=== PATIENT | female | born 1980 | race Two or more races ===

== ENCOUNTER 2017-12-11 15:43 | Emergency (ER) | payer OTHER ==
[2017-12-11 17:23] LABS: BILIRUBIN,URINE NEGATIVE (NEG); CLARITY,URINE CLEAR; COLOR,URINE YELLOW; GLUCOSE,URINE NEGATIVE (NEG); NITRITE,URINE NEGATIVE (NEG); PROTEIN,URINE NEGATIVE (NEG-TRACE); UROBILINOGEN,URINE 0.2 mg/dL (0.2 mg/dL)
[2017-12-11] MEDS: IBUPROFEN 800 MG TABLET. PO ×2 (17:30)
[2017-12-11 17:33] LABS: BACTERIA,URINE FEW /HPF (0-FEW); RBC,URINE 0 /HPF (0-2); SQUAMOUS EPITHELIAL CELL,UR OCC /LPF; WBC,URINE OCC /HPF (0-4)
[2017-12-11 17:49] LABS: INFLUENZA A PATIENT NEGATIVE (NEGATIVE); INFLUENZA B PATIENT NEGATIVE (NEGATIVE); OBC FLU VALID
== END 2017-12-11 18:24 | disposition home or self-care (01) ==
LOC: ER 18:24
DX: B34.9 Viral infection, unspecified (principal)
CPT/HCPCS: 81001; 87804; 87804-59; 99284

== ENCOUNTER 2018-09-25 00:30 | Emergency (ER) | payer OTHER ==
[~2018-09-25] VITALS: Ht 157.5 cm; Wt 64.9 kg
[~2018-09-25 00:30] MED LIST: OSEL75CA PO
[2018-09-25 00:48] VITALS: BP 128/79
[2018-09-25] MEDS ORDERED: DIPH25CA58 PO (01:07)
[2018-09-25] MEDS ORDERED: HYDR453.4 TP (01:07)
[2018-09-25] MEDS ORDERED: diphenhydrAMINE HCL 25 MG CAPSULE PO ONE (01:15)
--- NOTE | 2018-09-25 01:26 | PHYS DOC ---
Past Medical History Past Medical History: No Pertinent History Past Surgical History: No Surgical History Alcohol Use: None Drug Use: None Adult General Chief Complaint Chief Complaint: SKIN PROBLEM HPI HPI Patient is a 38 year olD female with rash times one month worse at night it got worse tonight she has not tried anything for relief it is itching no shortness of breath no new medications no new foods no medical history that she knows of Review of Systems Review of Systems Constitutional: Denies fever or chills [] Eyes: Denies change in visual acuity, redness, or eye pain [] HENT: Denies nasal congestion or sore throat [] Respiratory: Denies cough or shortness of breath [] All other systems were reviewed and found to be within normal limits, except as documented in this note. Current Medications Current Medications Current Medications Medications (Trade) Dose Ordered Sig/Whitney Start Time Stop Time Status Last Admin Dose Admin Diphenhydramine HCl (Benadryl) 50 mg 1X ONCE 09/25/18 01:15 09/25/18 01:16 DC Allergies Allergies Allergies Coded Allergies Type Severity Reaction Last Updated Verified No Known Drug Allergies 12/11/17 No Physical Exam Physical Exam Constitutional: Well developed, well nourished, no acute distress, non-toxic appearance. [] HENT: Normocephalic, atraumatic, bilateral external ears normal, oropharynx moist, no oral exudates, nose normal. [] Eyes: PERRLA, EOMI, conjunctiva normal, no discharge. [] Neck: Normal range of motion, no tenderness, supple, no stridor. [] Cardiovascular:Heart rate regular rhythm, no murmur [] Lungs & Thorax: Bilateral breath sounds clear to auscultation [] Abdomen: Bowel sounds normal, soft, no tenderness, no masses, no pulsatile masses. [] Skin: Urticarial rash on the trunk and extremities and neck Back: No tenderness, no CVA tenderness. [] Extremities: No tenderness, no cyanosis, no clubbing, ROM intact, no edema. [] Neurologic: Alert and oriented X 3, normal motor function, normal sensory function, no focal deficits noted. [] Psychologic: Affect normal, judgement normal, mood normal. [] Current Patient Data Vital Signs Vital Signs Date Time Temp Pulse Resp B/P (MAP) Pulse Ox O2 Delivery O2 Flow Rate FiO2 09/25/18 00:48 97.6 64 18 128/79 (95) 99 Room Air 97.6 EKG EKG [] Radiology/Procedures Radiology/Procedures [] Course & Med Decision Making Course & Med Decision Making Pertinent Labs and Imaging studies reviewed. (See chart for details) []Urticaria NOS trial of Benadryl and hydrocortisone cream was given. No obvious trigger could be identified by history. Dragon Disclaimer Dragon Disclaimer This electronic medical record was generated, in whole or in part, using a voice recognition dictation system. Departure Departure Impression: Primary Impression: Urticaria Disposition: HOME, SELF-CARE Condition: STABLE Patient Instructions: Hives, Fvul-wr-Agha Scripts Diphenhydramine Hcl (BENADRYL) 25 Mg Capsule 25 MG PO BID PRN for ITCHING, #30 CAP Prov: MIRNA CHONG MD 09/25/18 Hydrocortisone (HYDROCORTISONE) 453.6 Gm Oint...g. 1 APPLIC TP BID, #60 GM 1 Refill Prov: MIRNA CHONG MD 09/25/18 MIRNA CHONG MD Sep 25, 2018 01:25
== END 2018-09-25 01:50 | disposition home or self-care (01) ==
LOC: ER 00:30
DX: L50.9 Urticaria, unspecified (principal)
CPT/HCPCS: 99283; Q0163

== ENCOUNTER 2019-09-17 12:52 | Emergency (ER) | payer OTHER ==
[~2019-09-17] VITALS: Ht 157.5 cm; Wt 73.5 kg
[~2019-09-17 12:52] MED LIST changes: +DIPH25CA58 PO; +HYDR453.4 TP
[2019-09-17] MEDS ORDERED: ONDANSETRON PF 4 MG/2 ML VIAL. IV ONE (13:30)
[2019-09-17] MEDS ORDERED: fentaNYL PF VIAL 100 MCG/2 ML VIAL IVP ONE (13:30)
[2019-09-17] MEDS ORDERED: IV NORMAL SALINE 500ML BAG 500 ML IV ONE (13:30)
[2019-09-17 14:01] LABS: BASO % 1 % (0-3); EOS # 0.1 x10^3/uL (0.0-0.7); EOS % 2 % (0-3); HEMATOCRIT 38.8 % (36.0-47.0); HEMOGLOBIN 13.6 g/dL (12.0-15.5); LYMPH # 1.7 x10^3/uL (1.0-4.8); LYMPH % 36 % (24-48); MEAN CORPUSCULAR HEMOGLOBIN 30 pg (25-35); MEAN CORPUSCULAR HGB CONC 35 g/dL (31-37); MEAN CORPUSCULAR VOLUME 87 fL (79-100); MONO # 0.2 x10^3/uL (0.0-1.1); MONO % 5 % (0-9); NEUT # 2.6 x10^3/uL (1.8-7.7); NEUT % 56 % (31-73); PLATELET COUNT 164 x10^3/uL (140-400); RED BLOOD COUNT 4.47 x10^6/uL (3.50-5.40); RED CELL DISTRIBUTION WIDTH 12.5 % (11.5-14.5); WHITE BLOOD COUNT 4.6 x10^3/uL (4.0-11.0)
[2019-09-17 14:03] LABS: CREATININE 0.6 mg/dL (0.6-1.0); GFR 110.2; POTASSIUM 3.3 mmol/L (3.5-5.1)
[2019-09-17 14:10] LABS: ALBUMIN 4.1 g/dL (3.4-5.0); TOTAL PROTEIN 8.3 g/dL (6.4-8.2)
--- NOTE | 2019-09-17 14:47 | PHYS DOC ---
Past Medical History Past Medical History: No Pertinent History, GERD, Hypertension Past Surgical History: No Surgical History Alcohol Use: None Drug Use: None Adult General Chief Complaint Chief Complaint: DIZZY/LIGHT HEADED HPI HPI Patient is a 39-year-old female who presents with complaint of headache for the last day with some nausea and photophobia. Patient has had no vomiting. Patient also indicates that she feels a little bit dizzy and weak when she stands up. She denies any visual changes. She denies any fever or neck pain. Patient rates headache as moderate. She does indicate that she has photophobia.[] Review of Systems Review of Systems Constitutional: Denies fever or chills [] Eyes: Denies change in visual acuity, redness, or eye pain [] Respiratory: Denies cough or shortness of breath [] Cardiovascular: No additional information not addressed in HPI [] GI: Denies abdominal pain. Admits to nausea but no vomiting or diarrhea [] Integument: Denies rash or skin lesions [] Neurologic: Complains of headache without focal weakness or sensory changes [] All other systems were reviewed and found to be within normal limits, except as documented in this note. Current Medications Current Medications Current Medications Medications (Trade) Dose Ordered Sig/Whitney Start Time Stop Time Status Last Admin Dose Admin Fentanyl Citrate (Fentanyl 2ml Vial) 50 mcg 1X ONCE 09/17/19 13:30 09/17/19 13:31 DC 09/17/19 13:56 50 MCG Ondansetron HCl (Zofran) 4 mg 1X ONCE 09/17/19 13:30 09/17/19 13:31 DC 09/17/19 13:55 4 MG Sodium Chloride 500 ml @ 500 mls/hr 1X ONCE 09/17/19 13:30 09/17/19 14:29 DC 09/17/19 13:30 500 MLS/HR Allergies Allergies Allergies Coded Allergies Type Severity Reaction Last Updated Verified No Known Drug Allergies 12/11/17 No Physical Exam Physical Exam Constitutional: Well developed, well nourished, no acute distress, non-toxic appearance. [] HENT: Normocephalic, atraumatic, bilateral external ears normal, oropharynx moist, no oral exudates, nose normal. [] Eyes: PERRLA, EOMI, conjunctiva normal, no discharge. [] Neck: Normal range of motion, no tenderness, supple, no stridor. [] Cardiovascular:Heart rate regular rhythm, no murmur [] Lungs & Thorax: Bilateral breath sounds clear to auscultation [] Abdomen: Bowel sounds normal, soft, no tenderness, no masses, no pulsatile masses. [] Skin: Warm, dry, no erythema, no rash. [] Back: No tenderness, no CVA tenderness. [] Extremities: No tenderness, no cyanosis, no clubbing, ROM intact, no edema. [] Neurologic: Alert and oriented X 3, normal motor function, normal sensory function, no focal deficits noted. [] Psychologic: Affect normal, judgement normal, mood normal. [] Current Patient Data Vital Signs Vital Signs Date Time Temp Pulse Resp B/P (MAP) Pulse Ox O2 Delivery O2 Flow Rate FiO2 09/17/19 14:48 64 17 96 09/17/19 13:56 Room Air 09/17/19 13:10 98.7 131/85 (100) 98.7 Lab Values Laboratory Tests Test 09/17/19 13:45 09/17/19 14:28 09/17/19 14:35 White Blood Count 4.6 x10^3/uL (4.0-11.0) Red Blood Count 4.47 x10^6/uL (3.50-5.40) Hemoglobin 13.6 g/dL (12.0-15.5) Hematocrit 38.8 % (36.0-47.0) Mean Corpuscular Volume 87 fL (79-100) Mean Corpuscular Hemoglobin 30 pg (25-35) Mean Corpuscular Hemoglobin Concent 35 g/dL (31-37) Red Cell Distribution Width 12.5 % (11.5-14.5) Platelet Count 164 x10^3/uL (140-400) Neutrophils (%) (Auto) 56 % (31-73) Lymphocytes (%) (Auto) 36 % (24-48) Monocytes (%) (Auto) 5 % (0-9) Eosinophils (%) (Auto) 2 % (0-3) Basophils (%) (Auto) 1 % (0-3) Neutrophils # (Auto) 2.6 x10^3/uL (1.8-7.7) Lymphocytes # (Auto) 1.7 x10^3/uL (1.0-4.8) Monocytes # (Auto) 0.2 x10^3/uL (0.0-1.1) Eosinophils # (Auto) 0.1 x10^3/uL (0.0-0.7) Basophils # (Auto) 0.0 x10^3/uL (0.0-0.2) Sodium Level 140 mmol/L (136-145) Potassium Level 3.3 mmol/L (3.5-5.1) L Chloride Level 102 mmol/L (98-107) Carbon Dioxide Level 27 mmol/L (21-32) Anion Gap 11 (6-14) Blood Urea Nitrogen 8 mg/dL (7-20) Creatinine 0.6 mg/dL (0.6-1.0) Estimated GFR (Cockcroft-Gault) 110.2 BUN/Creatinine Ratio 13 (6-20) Glucose Level 94 mg/dL (70-99) Calcium Level 9.0 mg/dL (8.5-10.1) Magnesium Level 2.0 mg/dL (1.8-2.4) Total Bilirubin 1.0 mg/dL (0.2-1.0) Aspartate Amino Transferase (AST) 25 U/L (15-37) Alanine Aminotransferase (ALT) 38 U/L (14-59) Alkaline Phosphatase 77 U/L (46-116) Total Protein 8.3 g/dL (6.4-8.2) H Albumin 4.1 g/dL (3.4-5.0) Albumin/Globulin Ratio 1.0 (1.0-1.7) Urine Collection Type Unknown Urine Color Yellow Urine Clarity Clear Urine pH 6.0 Urine Specific [place] <=1.005 Urine Protein Negative mg/dL (NEG-TRACE) Urine Glucose (UA) Negative mg/dL (NEG) Urine Ketones (Stick) Negative mg/dL (NEG) Urine Blood Negative (NEG) Urine Nitrite Negative (NEG) Urine Bilirubin Negative (NEG) Urine Urobilinogen Dipstick 0.2 mg/dL (0.2 mg/dL) Urine Leukocyte Esterase Negative (NEG) Urine RBC Occ /HPF (0-2) Urine WBC 1-4 /HPF (0-4) Urine Squamous Epithelial Cells Few /LPF Urine Bacteria Few /HPF (0-FEW) POC Urine HCG, Qualitative Hcg negative (Negative) Laboratory Tests 09/17/19 13:45 Laboratory Tests 09/17/19 13:45 EKG EKG [] Interpretation Time: EKG demonstrates normal sinus rhythm with rate of 65. Radiology/Procedures Radiology/Procedures [] Impressions: CT scan of the head without contrast 09/17/2019 Clinical History: Severe headaches. Technique: Unenhanced, contiguous, 5 mm axial sections were obtained through the head. One or more of the following individualized dose reduction techniques were utilized for this study: 1. Automated exposure control. 2. Adjustment of the mA and/or kV according to patient size. 3. Use of iterative reconstruction technique. Findings: The ventricles and sulci are within normal limits in size and configuration. No focal area of abnormal attenuation is seen involving the brain parenchyma. No extra-axial fluid collection is seen. No skull fracture is seen. Impression: Negative study. Electronically signed by: Pawan Harrison MD (09/17/2019 3:05 PM) [facility] Course & Med Decision Making Course & Med Decision Making Pertinent Labs and Imaging studies reviewed. (See chart for details) [] Dragon Disclaimer Dragon Disclaimer This electronic medical record was generated, in whole or in part, using a voice recognition dictation system. Departure Departure Impression: Primary Impression: Migraine Disposition: 01 HOME, SELF-CARE Condition: STABLE Referrals: UNKNOWN PCP NAME (PCP) Patient Instructions: Migraine Headache Scripts Butalbital/Aspirin/Caffeine (FIORINAL 50-325-40 MG CAPSULE) 1 Each Capsule 1 EACH PO Q6HRS PRN for HEADACHE, #20 CAP Prov: JUANA GERONIMO Jr. DO 09/17/19 Problem Qualifiers Primary Impression: Migraine Migraine type: unspecified Status migrainosus presence: without status migrainosus Intractability: not intractable Qualified Codes: G43.909 - Migraine, unspecified, not intractable, without status migrainosus JUANA GERONIMO Jr. DO Sep 17, 2019 14:46
[2019-09-17 14:57] LABS: BILIRUBIN,URINE NEGATIVE (NEG); CLARITY,URINE CLEAR; COLOR,URINE YELLOW; NITRITE,URINE NEGATIVE (NEG); PROTEIN,URINE NEGATIVE (NEG-TRACE); UROBILINOGEN,URINE 0.2 mg/dL (0.2 mg/dL)
--- NOTE | 2019-09-17 15:08 | RAD ---
CT scan of the head without contrast 09/17/2019 Clinical History: Severe headaches. Technique: Unenhanced, contiguous, 5 mm axial sections were obtained through the head. One or more of the following individualized dose reduction techniques were utilized for this study: 1. Automated exposure control. 2. Adjustment of the mA and/or kV according to patient size. 3. Use of iterative reconstruction technique. Findings: The ventricles and sulci are within normal limits in size and configuration. No focal area of abnormal attenuation is seen involving the brain parenchyma. No extra-axial fluid collection is seen. No skull fracture is seen. Impression: Negative study. Electronically signed by: Pawan Harrison MD (09/17/2019 3:05 PM) [facility]
[2019-09-17 15:17] LABS: BACTERIA,URINE FEW /HPF (0-FEW); RBC,URINE OCC /HPF (0-2); SQUAMOUS EPITHELIAL CELL,UR FEW /LPF
[2019-09-17 15:20] VITALS: BP 124/72
[2019-09-17] MEDS ORDERED: BUTA1CAP31 PO (15:45)
--- NOTE | 2019-09-18 06:35 | EKG ---
[facility] [address] [place] [address] Test Date: 2019-09-17 Test Time: 13:39:04 Pat Name: LUDWIG SURESH Department: Room: Gender: F Medical Recruiter: : 1980 Requested By: JUANA GERONIMO Order Number: [id number] Reading MD: Awais Zepeda Measurements Intervals [place] Rate: 65 P: 37 AR: 164 QRS: 43 QRSD: 76 T: -4 QT: 498 QTc: 519 Interpretive Statements SINUS RHYTHM T ABNORMALITY IN ANTERIOR LEADS INFERIOR LEADS PROLONGED QT ABNORMAL ECG RI6.01 No previous ECG available for comparison Electronically Signed On 09-19-2019 14:31:28 [employer] by Awais Zepeda
== END 2019-09-17 15:59 | disposition home or self-care (01) ==
LOC: ER 12:52
DX: G43.909 Migraine, unspecified, not intractable, without status migrainosus (principal); R42 Dizziness and giddiness; K21.9 Gastro-esophageal reflux disease without esophagitis; I10 Essential (primary) hypertension
CPT/HCPCS: 36415; 70450; 80053; 81001; 81025; 83735; 85025; 93005; 96361; 96374; 96375; 99285; J2405; J3010; J7040

== ENCOUNTER 2020-02-09 11:18 | Emergency (ER) | payer OTHER ==
[~2020-02-09] VITALS: Ht 157.5 cm; Wt 68.0 kg
[~2020-02-09 11:18] MED LIST changes: +BUTA1CAP31 PO
[2020-02-09 12:16] VITALS: BP 143/50
[2020-02-09 13:00] LABS: BILIRUBIN,URINE NEGATIVE (NEG); CLARITY,URINE CLEAR; NITRITE,URINE NEGATIVE (NEG); PROTEIN,URINE NEGATIVE (NEG-TRACE); UROBILINOGEN,URINE 0.2 mg/dL (0.2 mg/dL)
--- NOTE | 2020-02-09 13:00 | RAD ---
Examination: CHEST AP ONLY History: Cough, tightness of the chest Comparison: None. Findings: AP portable upright frontal view of the chest was obtained. The cardiomediastinal silhouette is normal. Lungs are clear. There is no pneumothorax. No pleural effusion is appreciated. No acute bone abnormality. IMPRESSION: No acute cardiopulmonary process. Electronically signed by: Iraj Bartlett MD (02/09/2020 12:57 PM) [id number]
[2020-02-09 13:04] LABS: COLOR,URINE STRAW
[2020-02-09 13:05] LABS: SQUAMOUS EPITHELIAL CELL,UR MOD /LPF
[2020-02-09 13:07] LABS: BACTERIA,URINE FEW /HPF (0-FEW); RBC,URINE 0 /HPF (0-2); WBC,URINE 0 /HPF (0-4)
[2020-02-09] MEDS ORDERED: NAPR-683 PO (13:17)
--- NOTE | 2020-02-09 13:19 | PHYS DOC ---
Past Medical History Past Medical History: GERD, Hypertension Past Surgical History: No Surgical History Smoking Status: Never Smoker Alcohol Use: None Drug Use: None General Adult EDM: Chief Complaint: GENERALIZED BODY ACHES HPI: HPI: Patient is a 39 year old female with history of hypertension and GERD who presents with complaining of hurting in chest and abdomen, cough, chills. Patient complaining of hurting all over since yesterday associated with chills, sore throat, dry cough . Patient denies headache, shortness of breath, fever, vomiting, diarrhea, urinary symptoms, sick contact with COVID-19. Patient was afebrile at arrival to ER. Review of Systems: Review of Systems: Constitutional: Denies fever, reports chills. [] Eyes: Denies change in visual acuity. [] HENT: Denies nasal congestion, report sore throat. [] Respiratory: Denies shortness of breath, reports cough. [] Cardiovascular: Reports chest pain, denies edema. [] GI: Denies abdominal pain, nausea, vomiting, bloody stools or diarrhea. [] : Denies dysuria. [] Musculoskeletal: Denies back pain or joint pain. [] Integument: Denies rash. [] Neurologic: Denies headache, focal weakness or sensory changes. [] Endocrine: Denies polyuria or polydipsia. [] Lymphatic: Denies swollen glands. [] Psychiatric: Denies depression or anxiety. [] Heart Score: Risk Factors: Risk Factors: DM, Current or recent (<one month) smoker, HTN, HLP, family history of CAD, obesity. Risk Scores: Score 0 - 3: 2.5% MACE over next 6 weeks - Discharge Home Score 4 - 6: 20.3% MACE over next 6 weeks - Admit for Clinical Observation Score 7 - 10: 72.7% MACE over next 6 weeks - Early Invasive Strategies Allergies: Allergies: Allergies Coded Allergies Type Severity Reaction Last Updated Verified No Known Drug Allergies 12/11/17 No Physical Exam: PE: Constitutional: Well developed, well nourished, mild distress, non-toxic appearance. [] HENT: Normocephalic, atraumatic, bilateral external ears normal, oropharynx moist, no oral exudates, nose normal. [] Eyes: PERRLA, EOMI, conjunctiva normal, no discharge. [] Neck: Normal range of motion, no tenderness, supple, no stridor. [] Cardiovascular:Heart rate regular rhythm, no murmur [] Lungs & Thorax: Bilateral breath sounds clear to auscultation [] Abdomen: Bowel sounds normal, soft, no tenderness, no masses, no pulsatile masses. [] Skin: Warm, dry, no erythema, no rash. [] Back: No tenderness, no CVA tenderness. [] Extremities: No tenderness, no cyanosis, no clubbing, ROM intact, no edema. [] Neurologic: Alert and oriented X 3, normal motor function, normal sensory function, no focal deficits noted. [] Psychologic: Affect normal, judgement normal, mood normal. [] Current Patient Data: Labs: Laboratory Tests Test 02/09/20 12:55 POC Urine HCG, Qualitative Hcg negative (Negative) Vital Signs: Vital Signs Date Time Temp Pulse Resp B/P (MAP) Pulse Ox O2 Delivery O2 Flow Rate FiO2 02/09/20 12:16 98.1 59 18 143/50 (81) 98 Room Air 98.1 EKG: EKG: [] Radiology/Procedures: Radiology/Procedures: [facility] [address] [place] [address] IMAGING REPORT Signed PATIENT: LUDWIG SURESH ACCOUNT: [id number] : 1980 LOCATION: ER AGE: 39 SEX: F EXAM STATUS: REG ER ORD. PHYSICIAN: STEVEN RODRIGUEZ MD REASON: Cough, tightness of chest PROCEDURE: CHEST AP ONLY Examination: CHEST AP ONLY History: Cough, tightness of the chest Comparison: None. Findings: AP portable upright frontal view of the chest was obtained. The cardiomediastinal silhouette is normal. Lungs are clear. There is no pneumothorax. No pleural effusion is appreciated. No acute bone abnormality. IMPRESSION: No acute cardiopulmonary process. Electronically signed by: Iraj Trejo MD (02/09/2020 12:57 PM) [id number] DICTATED and SIGNED BY: IRAJ TREJO MD DATE: 02/09/20 1257 Course & Med Decision Making: Course & Med Decision Making Pertinent Labs and Imaging studies reviewed. (See chart for details) Evaluation of patient inertial 39-year-old female patient complaining of viral illness without fever and shortness of breath. COVID-19 test was obtained and result is pending. Patient had unremarkable chest x-ray and UA. Plan discharge patient home with diagnosis of viral illness. Patient was advised to follow-up with home quarantine until to get the test result. I've spoken with the patient and/or caregivers. I've explained the patient's condition, diagnosis and treatment plan based on information available to me at this time. I've answered the patient's and/or caregivers questions and addressed any concerns. The patient and/or caregivers have a good understanding the patient's diagnosis, condition and treatment plan as can be expected at this point. Vital signs have been stabilized. The patient's condition is stable for discharge from the emergency department. The patient will pursue further outpatient evaluation with her primary care provider or other designated consulting physician as outlined in the discharge instructions. Patient and/or caregivers are agreeable to this plan of care and follow-up instructions have been explained in detail. The patient and/or caregivers have received these instructions in written format and expressed understanding of these discharge instructions. The patient and her caregivers are aware that if any significant change in condition or worsening of symptoms should prompt him to immediately return to this of the closest emergency department. If an emergent department is not readily available I would enco urage him to call 911. Mono Disclaimer: Mono Disclaimer: This electronic medical record was generated, in whole or in part, using a voice recognition dictation system. Departure Departure Impression: Primary Impression: Viral syndrome Additional Impression: Suspected COVID-19 virus infection Disposition: HOME, SELF-CARE (At 1315) Condition: STABLE Referrals: UNKNOWN PCP NAME (PCP) Patient Instructions: Viral Infections Additional Instructions: Drink plenty of liquids Follow-up with your primary care physician in 3-5 days Return to ER if not getting better Follow-up with test results for COVID-19 in 2 or 3 days Follow-up with quarantine at home until get the test results for COVID-19 Thank you for visiting [facility]. We appreciate you trusting us with your care. If any additional problems come up don't hesitate to return to visit us. Please follow up with your primary care provider so they can plan additional care if needed and know about the problem that you had. If symptoms worsen come back to the Emergency Department. Any concerning symptoms that start such as chest pain, shortness of air, weakness or numbness on one side of the body, running high fevers or any other concerning symptoms return to the ER. Scripts Naproxen (NAPROSYN) 500 Mg Tablet 1 TAB PO BID for pain, #20 TAB Prov: STEVEN RODRIGUEZ MD 02/09/20 COVID-19 Assessment: COVID-19 Patient Risks: Age 65 or older: No Sign of co-morbidity: Yes Exp to person + for COVID: No Exp to PUI: No Travel from affected area: No Lower respiratory symptoms: No Fever: No Other: No PPE Use: Full PPE with N95 mask or PAPR: Yes (Wearing N95 mask, no gawn was used) STEVEN RODRIGUEZ MD Feb 09, 2020 13:19
[2020-02-12] MEDS ORDERED: OXYC1TAB15 PO ×2 (11:15→11:22)
== END 2020-02-09 13:50 | disposition home or self-care (01) ==
LOC: ER 11:18
DX: B34.9 Viral infection, unspecified (principal); Z03.818 Encounter for observation for suspected exposure to other biological agents ruled out; K21.9 Gastro-esophageal reflux disease without esophagitis; I10 Essential (primary) hypertension
CPT/HCPCS: 36415; 71045; 81001; 81025; 87635; 99284

== ENCOUNTER 2020-02-14 02:29 | Emergency (ER) | payer OTHER ==
[~2020-02-14] VITALS: Ht 157.5 cm; Wt 68.0 kg
[~2020-02-14 02:29] MED LIST changes: +NAPR-683 PO; +OXYC1TAB15 PO
[2020-02-14 03:00] VITALS: BP 127/81
[2020-02-14] MEDS ORDERED: ORPHENADRINE CITRATE 60 MG/2 ML VIAL. IM ONE (03:15)
[2020-02-14] MEDS ORDERED: KETOROLAC 60 MG/2 ML VIAL. IM ONE (03:15)
[2020-02-14] MEDS ORDERED: ORPH100T PO (03:16)
[2020-02-14] MEDS ORDERED: ONDA4TAB12 PO (03:16)
[2020-02-14] MEDS ORDERED: TRAM50TA PO (03:16)
[2020-02-14] MEDS ORDERED: DICL50TA4 PO (03:16)
--- NOTE | 2020-02-14 03:16 | PHYS DOC ---
Past Medical History Past Medical History: GERD, Hypertension Past Surgical History: No Surgical History Smoking Status: Never Smoker Alcohol Use: None Drug Use: None General Adult EDM: Chief Complaint: MULTIPLE COMPLAINTS HPI: HPI: Patient is a 39 year old female who presents with numerous complaints after being discharged home yesterday. Patient had been admitted into the hospital for acute cholecystitis and had a laparoscopic cholecystectomy completed. Patient has taken a dose of Percocet for the pain and states that now she feels like she can't sleep and feels jittery all over and itchy too. Patient has had no further vomiting. She also complains of pain in the right side of her neck as well as her upper back. Patient states that the neck and upper back pain were present prior to her admission but she states that now they're worse.[] Review of Systems: Review of Systems: Constitutional: Denies fever or chills. [] Respiratory: Denies cough or shortness of breath. [] Cardiovascular: Denies chest pain or edema. [] GI: Admits to abdominal bloating and discomfort. [] Musculoskeletal: Complains of right-sided neck and upper back. [] Integument: Denies rash. [] Neurologic: Denies headache, focal weakness or sensory changes. [] Heart Score: Risk Factors: Risk Factors: DM, Current or recent (<one month) smoker, HTN, HLP, family history of CAD, obesity. Risk Scores: Score 0 - 3: 2.5% MACE over next 6 weeks - Discharge Home Score 4 - 6: 20.3% MACE over next 6 weeks - Admit for Clinical Observation Score 7 - 10: 72.7% MACE over next 6 weeks - Early Invasive Strategies Current Medications: Current Medications Medications (Trade) Dose Ordered Sig/[facility] Start Time Stop Time Status Last Admin Dose Admin Ketorolac Tromethamine (Toradol Im) 60 mg 1X ONCE 02/14/20 03:15 02/14/20 03:16 UNV Orphenadrine Citrate (Norflex) 60 mg 1X ONCE 02/14/20 03:15 02/14/20 03:16 UNV Allergies: Allergies: Allergies Coded Allergies Type Severity Reaction Last Updated Verified No Known Drug Allergies 12/11/17 No Physical Exam: PE: Constitutional: Well developed, well nourished, no acute distress, non-toxic appearance. [] HENT: Normocephalic, atraumatic, bilateral external ears normal, pharyngeal erythema without exudates is noted. [] Neck: Normal range of motion, with tenderness to palpation and palpable spasm in the right sided suboccipital and cervical strap musculature. [] Cardiovascular: Regular rate and rhythm[] Lungs & Thorax: Bilateral breath sounds clear to auscultation [] Abdomen: Bowel sounds normal, soft, with mild upper abdominal tenderness. [] Skin: Warm, dry, no erythema, no rash. [] EKG: EKG: [] Radiology/Procedures: Radiology/Procedures: [] Course & Med Decision Making: Course & Med Decision Making Pertinent Labs and Imaging studies reviewed. (See chart for details) [] Dragon Disclaimer: Dragon Disclaimer: This electronic medical record was generated, in whole or in part, using a voice recognition dictation system. Departure Departure Impression: Primary Impression: Neck pain Additional Impression: Upper back pain Disposition: HOME, SELF-CARE Condition: STABLE Referrals: UNKNOWN PCP NAME (PCP) Patient Instructions: Back Pain, Adult, Musculoskeletal Pain Scripts Tramadol Hcl (TRAMADOL HCL) 50 Mg Tablet 50 MG PO Q6HRS PRN for PAIN, #20 TAB Prov: JUANA GERONIMO Jr. DO 02/14/20 Orphenadrine Citrate (ORPHENADRINE CITRATE) 100 Mg Tablet.er 1 TAB PO BID PRN for MUSCLE SPASMS, #14 TAB Prov: JUANA GERONIMO Jr. DO 02/14/20 Ondansetron (ONDANSETRON ODT) 4 Mg Tab.rapdis 1 TAB PO PRN Q6-8HRS PRN for NAUSEA, #15 TAB Prov: JUANA GERONIMO Jr. DO 02/14/20 Diclofenac Sodium (DICLOFENAC SODIUM) 50 Mg Tablet.dr 1 TAB PO BID PRN for PAIN, #20 TAB Prov: JUANA GERONIMO Jr. DO 02/14/20 JUANA GERONIMO Jr. DO Feb 14, 2020 03:16
== END 2020-02-14 04:56 | disposition home or self-care (01) ==
LOC: ER 02:29
DX: M54.2 Cervicalgia (principal); M54.6 Pain in thoracic spine; K81.0 Acute cholecystitis; R14.0 Abdominal distension (gaseous); K21.9 Gastro-esophageal reflux disease without esophagitis; I10 Essential (primary) hypertension
CPT/HCPCS: 96372; 99284; J1885; J2360